=== PATIENT | male | born 1950 | race Caucasian/White ===

== ENCOUNTER → 2016-10-23 | Outpatient (CLI) | payer MEDICARE ==
[~2016-10-23] MED LIST: ASPI-496 PO; ATEN25TA PO; BENA5TAB2 PO; CHOL100018 PO; DAPA5TAB PO; LIRA0.6P SQ; MULT1TAB60 PO; PRAV20TA PO
[2016-10-23 09:17] LABS: ASPARTATE AMINO TRANSFERASE 194 U/L (15-37); BLOOD UREA NITROGEN 15 mg/dL (7-18)
== END | disposition home or self-care (01) ==
LOC: STAR 07:42
PROVIDERS: ATTEND Orthopaedic Surgery
DX: Z01.818 Encounter for other preprocedural examination (principal); M16.11 Unilateral primary osteoarthritis, right hip
CPT/HCPCS: 36415; 80053; 81003; 85025; 87081; 93005

== ENCOUNTER → 2017-10-27 | Outpatient (CLI) | payer MEDICARE ==
[~2017-10-27] MED LIST changes: +ACET-1600 PO; +CHOL100012 PO; -CHOL100018 PO; +DOCU-131 PO; +HYDR-3240 PO; +IBUP-1223 PO
== END | disposition home or self-care (01) ==
LOC: CVU 08:28
PROVIDERS: ATTEND Internal Medicine Cardiovascular Disease
DX: I10 Essential (primary) hypertension (principal); E11.9 Type 2 diabetes mellitus without complications; R94.31 Abnormal electrocardiogram [ECG] [EKG]; Z82.49 Family history of ischemic heart disease and other diseases of the circulatory system; R60.0 Localized edema
CPT/HCPCS: 93017; 93306; 93350

== ENCOUNTER 2019-06-23 13:40 | Inpatient (IN) | payer MEDICARE ==
[~2019-06-23] VITALS: Ht 182.9 cm; Wt 87.2 kg
[~2019-06-23 13:40] MED LIST changes: -BENA5TAB2 PO; +BENA5TAB3 PO
--- NOTE | 2019-06-23 13:53 | NUR ---
SORAIDA. REPORT RECEIVED FROM EMS. TRANSFFERED FROM [facility]. PT C/O GENERALIZED WEAKNESS/TARRY STOOL X A FEW DAYS. PT GOT 1 UNIT OF BLOOD TRANSFUSION D/T LOW H&H. PT'S AOX4. RESPS EVEN AND UNLABORED. BP/SPO2 MONITORS IN PLACE. CALL LIGHT WITHIN REACH. EDMD AT BEDSIDE TO EVALUATE AT THIS TIME.
[2019-06-23] MEDS ORDERED: PANTOPRAZOLE 80 MG in SODIUM CHLORIDE 0.9% 50 ML IVPB ONE (14:02)
[2019-06-23 14:30] LABS: ALANINE AMINOTRANSFERASE 87 U/L (12-78); ALBUMIN 2.3 g/dL (3.4-5.0); ANION GAP 12 mmol/L (5-15); CALCIUM 7.6 mg/dL (8.5-10.1); CHLORIDE 101 mmol/L (98-107); CREATININE 0.79 mg/dL (0.7-1.3)
[2019-06-23] MEDS ORDERED: SODIUM CHLORIDE FLUSH 10ML SYR IVF ONE ×2 (14:30→17:00)
[2019-06-23 14:33] LABS: ALKALINE PHOSPHATASE 195 U/L (45-117); BILIRUBIN,TOTAL 1.7 mg/dL (0.2-1.0); TOTAL PROTEIN 5.6 g/dL (6.4-8.2)
--- NOTE | 2019-06-23 14:38 | NUR ---
PROTONIX INFUSING AT THIS TIME. PT TOLERATED WELL.
[2019-06-23 14:53] LABS: INTERNATIONAL NORMALIZED RATIO 1.39 (0.93-1.1); PROTHROMBIN TIME 14.4 Seconds (9.6-11.5)
[2019-06-23] MEDS: PANTOPRAZOLE 80 MG in SODIUM CHLORIDE 0.9% 100 ML IV SCH (15:05)
--- NOTE | 2019-06-23 15:07 | NUR ---
Note carlineone in EDM - 06/23/19 at 1540 by YAMILKA END PROTONIX INFUSING AT THIS TIME. PT TOLERATED WELL. PT'S AOX4. RESPS EVEN AND UNLABORED.
--- NOTE | 2019-06-23 15:08 | NUR ---
2ND PROTONIX INFUSING AT THIS TIME. PT TOLERATED WELL. PT'S AOX4. RESPS EVEN AND UNLABORED.
[2019-06-23] MEDS ORDERED: CYAN-27 PO (15:12)
[2019-06-23 15:34] LABS: BASOPHILS # (AUTO) 0.03 x10^3/uL (0-0.1); BASOPHILS % (AUTO) 0 % (0-1); EOSINOPHILS # (AUTO) 0.04 x10^3/uL (0-0.4); EOSINOPHILS % (AUTO) 1 % (1-7); LYMPHOCYTES # (AUTO) 0.83 x10^3/uL (1-3.4); LYMPHOCYTES % (AUTO) 14 % (22-44); MD NO; MEAN CORPUSCULAR HEMOGLOBIN 26.5 pg (27.5-34.5); MEAN CORPUSCULAR VOLUME 85.5 fL (81-97); MEAN PLATELET VOLUME 6.9 fL (7.4-10.4); MONOCYTES % (AUTO) 12 % (2-9); NEUTROPHILS # (AUTO) 4.44 x10^3/uL (1.8-6.8); NEUTROPHILS % (AUTO) 74 % (42-75); PLATELET COUNT 151 x10^3/uL (130-400); RED BLOOD COUNT 2.78 x10^6/uL (4.38-5.82); RED CELL DISTRIBUTION WIDTH 19.6 % (9.4-14.8)
--- NOTE | 2019-06-23 16:21 | NUR ---
PT RESTING IN [facility]. PT'S AOX4. RESPS EVEN AND UNLABORED.
--- NOTE | 2019-06-23 16:56 | NUR ---
PT AMB TO BR WITH THIS RN AND PT'S . PT'S AOX4. RESPS EVEN AND UNLABORED.
--- NOTE | 2019-06-23 17:02 | NUR ---
PT REQUESTING FOOD/WATER AT THIS TIME. EDMD NOTIFIED AND EDMD STATES"JUST NPO STATUS NOW." PT NOTIFIED.
[2019-06-23] MEDS ORDERED: ONDANSETRON 2MG/ML, 2ML IVPush PRN (18:00)
[2019-06-23] MEDS: INSULIN LISPRO 100 UNITS/ML, PEN SQ-INSULIN SCH (18:00)
[2019-06-23] MEDS ORDERED: ACETAMINOPHEN 325 MG TABLET PO PRN (18:00)
[2019-06-23] MEDS ORDERED: ONDANSETRON ODT 4 MG PO PRN (18:00)
--- NOTE | 2019-06-23 18:21 | NUR ---
REPORT GIVEN TO KRISTA BAIG. ALL QUESTIONS ANSWERED.
[2019-06-23 18:56] VITALS: BP 128/73
[2019-06-23] MEDS: LACTATED RINGERS 1,000 ML IV SCH (20:54)
[2019-06-24] MEDS: PANTOPRAZOLE 80 MG in SODIUM CHLORIDE 0.9% 100 ML IV SCH (00:17)
[2019-06-24 00:48] VITALS: BP 120/75
[2019-06-24] MEDS: INSULIN LISPRO 100 UNITS/ML, PEN SQ-INSULIN SCH ×4 (05:46→18:00)
[2019-06-24] MEDS: LACTATED RINGERS 1,000 ML IV SCH ×2 (05:50→22:00)
[2019-06-24 07:35] VITALS: BP 116/69
[2019-06-24 07:51] LABS: ALANINE AMINOTRANSFERASE 79 U/L (12-78); ALBUMIN 2.1 g/dL (3.4-5.0); ANION GAP 8 mmol/L (5-15); CALCIUM 7.5 mg/dL (8.5-10.1); CHLORIDE 105 mmol/L (98-107); CREATININE 0.68 mg/dL (0.7-1.3)
[2019-06-24 07:53] LABS: MEAN CORPUSCULAR HEMOGLOBIN 26.8 pg (27.5-34.5); MEAN CORPUSCULAR HGB CONC 30.8 g/dL (33.2-36.2); MEAN CORPUSCULAR VOLUME 86.7 fL (81-97); MEAN PLATELET VOLUME 6.7 fL (7.4-10.4); PLATELET COUNT 141 x10^3/uL (130-400); RED BLOOD COUNT 2.65 x10^6/uL (4.38-5.82); RED CELL DISTRIBUTION WIDTH 18.8 % (9.4-14.8)
[2019-06-24 07:54] LABS: ALKALINE PHOSPHATASE 163 U/L (45-117); TOTAL PROTEIN 5.3 g/dL (6.4-8.2)
[2019-06-24 09:08] LABS: BASOPHILS # (AUTO) 0.02 x10^3/uL (0-0.1); BASOPHILS % (AUTO) 1 % (0-1); EOSINOPHILS # (AUTO) 0.08 x10^3/uL (0-0.4); EOSINOPHILS % (AUTO) 2 % (1-7); LYMPHOCYTES # (AUTO) 0.93 x10^3/uL (1-3.4); LYMPHOCYTES % (AUTO) 20 % (22-44); MD SCAN; MONOCYTES # (AUTO) 0.56 x10^3/uL (0.2-0.8); MONOCYTES % (AUTO) 12 % (2-9); NEUTROPHILS # (AUTO) 3.21 x10^3/uL (1.8-6.8); NEUTROPHILS % (AUTO) 67 % (42-75)
[2019-06-24] MEDS ORDERED: PANTOPRAZOLE 80 MG in SODIUM CHLORIDE 0.9% 100 ML IV SCH (10:00)
[2019-06-24 13:30] VITALS: BP 112/71
[2019-06-24] MEDS ORDERED: SUCCINYLCHOLINE 20 MG/ML, 10ML ONE (15:40)
[2019-06-24] MEDS ORDERED: PROPOFOL 10 MG/ML, 20ML ONE (15:40)
[2019-06-24] MEDS ORDERED: ONDANSETRON 2MG/ML, 2ML ONE (15:40)
[2019-06-24] MEDS ORDERED: PROMETHAZINE 25 MG/ML, 1ML IV PRN (16:00)
[2019-06-24] MEDS ORDERED: OXYcodone 5 MG/5 ML ORAL.SOL UDC PO PRN (16:00)
[2019-06-24] MEDS ORDERED: ONDANSETRON 2MG/ML, 2ML IVPush PRN (16:00)
[2019-06-24] MEDS ORDERED: FENTANYL PF 100 MCG/2ML IV PRN (16:00)
[2019-06-24] MEDS ORDERED: METOCLOPRAMIDE 5 MG/ML, 2ML IV PRN (16:00)
[2019-06-24] MEDS ORDERED: KETOROLAC 30 MG/1 ML IV PRN (16:00)
[2019-06-24] MEDS ORDERED: MEPERIDINE/PF 25MG/0.5ML IVPush PRN (16:00)
[2019-06-24] MEDS ORDERED: hydrALAzine 20 MG/ML, 1ML IV PRN (16:00)
[2019-06-24] MEDS ORDERED: LABETALOL 5MG/ML, 20ML IV PRN (16:00)
[2019-06-24] MEDS ORDERED: HYDROmorphone 1 MG/ML, 1ML INJ IV PRN (16:00)
[2019-06-24] MEDS ORDERED: ALBUTEROL SULFATE 2.5 MG/3 ML NPPB PRN (16:00)
[2019-06-24 16:52] VITALS: BP 126/70
[2019-06-24 19:09] VITALS: BP 124/71
[2019-06-25] VITALS (8 sets, daily range): BP systolic 100–130; BP diastolic 59–81
[2019-06-25] MEDS: INSULIN LISPRO 100 UNITS/ML, PEN SQ-INSULIN SCH ×5 (00:05→21:00)
[2019-06-25] MEDS: OMEPRAZOLE 20 MG CAPSULE.DR PO SCH ×2 (06:11→16:17)
[2019-06-25] MEDS: CHLORDIAZEPOXIDE 25 MG CAPSULE PO SCH ×2 (14:49→21:01)
[2019-06-26 03:50] VITALS: BP 108/74
[2019-06-26] MEDS: OMEPRAZOLE 20 MG CAPSULE.DR PO SCH (05:06)
[2019-06-26 05:51] LABS: ANION GAP 5 mmol/L (5-15); CALCIUM 7.1 mg/dL (8.5-10.1); CHLORIDE 103 mmol/L (98-107)
[2019-06-26 05:55] LABS: ALANINE AMINOTRANSFERASE 74 U/L (12-78); ALKALINE PHOSPHATASE 154 U/L (45-117); BILIRUBIN,TOTAL 2.1 mg/dL (0.2-1.0); CREATININE 0.68 mg/dL (0.7-1.3); TOTAL PROTEIN 5.1 g/dL (6.4-8.2)
[2019-06-26 06:45] VITALS: BP 117/74
[2019-06-26] MEDS: INSULIN LISPRO 100 UNITS/ML, PEN SQ-INSULIN SCH ×2 (07:00→11:00)
[2019-06-26 09:04] LABS: MEAN CORPUSCULAR HEMOGLOBIN 26.3 pg (27.5-34.5); MEAN CORPUSCULAR HGB CONC 30.6 g/dL (33.2-36.2); MEAN CORPUSCULAR VOLUME 86.1 fL (81-97); RED BLOOD COUNT 3.11 x10^6/uL (4.38-5.82); RED CELL DISTRIBUTION WIDTH 18.6 % (9.4-14.8)
[2019-06-26 09:08] LABS: BASOPHILS # (AUTO) 0.03 x10^3/uL (0-0.1); BASOPHILS % (AUTO) 0 % (0-1); EOSINOPHILS # (AUTO) 0.24 x10^3/uL (0-0.4); EOSINOPHILS % (AUTO) 3 % (1-7); LYMPHOCYTES # (AUTO) 1.19 x10^3/uL (1-3.4); LYMPHOCYTES % (AUTO) 15 % (22-44); MD MORPH REVIEW ONLY; MONOCYTES # (AUTO) 0.74 x10^3/uL (0.2-0.8); MONOCYTES % (AUTO) 10 % (2-9); NEUTROPHILS # (AUTO) 5.51 x10^3/uL (1.8-6.8); NEUTROPHILS % (AUTO) 71 % (42-75)
[2019-06-26 09:09] LABS: ANISOCYTOSIS 1+
[2019-06-26 09:10] LABS: HYPOCHROMIA 1+; POLYCHROMASIA 1+
[2019-06-26 09:14] LABS: SPHEROCYTES 1+
[2019-06-26 09:15] LABS: OVALOCYTES 1+
[2019-06-26 09:16] LABS: STOMATOCYTES 1+
[2019-06-26] MEDS: CHLORDIAZEPOXIDE 25 MG CAPSULE PO SCH (09:16)
[2019-06-26 09:29] LABS: MEAN PLATELET VOLUME 6.8 fL (7.4-10.4); PLATELET COUNT 138 x10^3/uL (130-400)
[2019-06-26 09:30] LABS: <PLATELET ESTIMATE> ADEQUATE; <PLT MORPHOLOGY> NORMAL PLT MORPH
[2019-06-26] MEDS ORDERED: BENA10TA6 PO (11:00)
[2019-06-26] MEDS ORDERED: OMEP-110 PO (11:00)
[2019-06-26] MEDS ORDERED: CHLO25CA9 PO (11:00)
== END 2019-06-26 12:12 | disposition home or self-care (01) | DRG 378 ==
LOC: ED 16:42 → EDIP 16:54 → ED 16:57 → 4WST 18:45 → DCLOUNGE 06-26 12:00
PROVIDERS: ADMIT Internal Medicine; ATTEND Family Medicine
PROC: 0DJ08ZZ Inspection of Upper Intestinal Tract, Via Natural or Artificial Opening Endoscopic (ICD-10-PCS; 2019-06-24)
PROC: 30233N1 Transfusion of Nonautologous Red Blood Cells into Peripheral Vein, Percutaneous Approach (ICD-10-PCS; principal; 2019-06-25)
DX: K25.4 Chronic or unspecified gastric ulcer with hemorrhage (principal); D62 Acute posthemorrhagic anemia; K76.6 Portal hypertension; F10.239 Alcohol dependence with withdrawal, unspecified; K70.31 Alcoholic cirrhosis of liver with ascites; E83.110 Hereditary hemochromatosis; E11.42 Type 2 diabetes mellitus with diabetic polyneuropathy; E78.00 Pure hypercholesterolemia, unspecified; E78.5 Hyperlipidemia, unspecified; I10 Essential (primary) hypertension; K31.89 Other diseases of stomach and duodenum; K80.20 Calculus of gallbladder without cholecystitis without obstruction; Z87.891 Personal history of nicotine dependence; Z87.11 Personal history of peptic ulcer disease; Z85.828 Personal history of other malignant neoplasm of skin
CPT/HCPCS: 36415; 80053; 82962; 83036; 85014; 85018; 85025; 85610; 85730; 86850; 86900; 86923; 93005; 96365; 99285; G0378; J2405; J2704; C9113; J0330; J7120; P9016

== ENCOUNTER → 2019-07-13 | Outpatient (CLI) | payer MEDICARE ==
[~2019-07-13] MED LIST changes: +ACID1TAB7 PO; +ALBUMIN HUMAN 25% 12.5 GM/50 ML ONE; +BENA10TA6 PO; +CARV3.1212 PO; +CHLO25CA9 PO; +CYAN-27 PO; +FERR-51 PO; +FURO40TA6 PO; +INSU100C5 SQ-INSULIN; +INSU100I11 SQ-INSULIN; +LIDOCAINE 1%, 10ML ONE; +OMEP-110 PO; +SPIR25TA PO
== END | disposition home or self-care (01) ==
LOC: RAD 14:59
PROVIDERS: ATTEND Internal Medicine
DX: R18.8 Other ascites (principal); K70.9 Alcoholic liver disease, unspecified
CPT/HCPCS: 49083; P9047

== ENCOUNTER 2019-08-07 11:49 | Emergency (ER) | payer MEDICARE ==
[~2019-08-07] VITALS: Ht 182.9 cm; Wt 93.0 kg
[~2019-08-07 11:49] MED LIST changes: -ALBUMIN HUMAN 25% 12.5 GM/50 ML ONE; +BENA10TA59 PO; -BENA10TA6 PO; -LIDOCAINE 1%, 10ML ONE
--- NOTE | 2019-08-07 12:12 | NUR ---
YADIRA POSEY BS FOR EXAM. PT AND SPOUSE PROVIDING INFORMATION. PER SPOUSE: PT HAS HAD SOB, PAIN ALL NIGHT. SENT TO ED PER DR FERGUSON" FOR PARACENTESIS, "AND THEN WE'RE GOING HOME". LIBRIUM X 1 TAB 0 LAST NOC UPPER GI SCHEDULED FOR THURSDAY.
[2019-08-07] MEDS ORDERED: METAMUCIL POWDER (12:29)
[2019-08-07] MEDS ORDERED: SPIR25TA5 PO (12:29)
--- NOTE | 2019-08-07 12:34 | NUR ---
DR ALTMAN BS FOR EXAM
[2019-08-07 13:52] VITALS: BP 96/56
--- NOTE | 2019-08-07 13:53 | NUR ---
RETURNED FROM PARACENTESIS PROCEDURE. PT REPORTS RELIEF OF SX.
== END 2019-08-07 14:41 | disposition home or self-care (01) ==
LOC: ED 13:39
DX: R18.8 Other ascites (principal); R00.0 Tachycardia, unspecified; R06.02 Shortness of breath; E11.9 Type 2 diabetes mellitus without complications
CPT/HCPCS: 49083; 99285

== ENCOUNTER 2019-08-30 10:30 | Outpatient (CLI) | payer MEDICARE ==
[~2019-08-30 10:30] MED LIST changes: +METAMUCIL POWDER; +SPIR25TA5 PO
[2019-08-30] MEDS ORDERED: LIDOCAINE 1%, 10ML ONE (11:18)
== END 2019-08-30 23:59 | disposition home or self-care (01) ==
LOC: RAD 10:30
PROVIDERS: ATTEND Internal Medicine
DX: K70.31 Alcoholic cirrhosis of liver with ascites (principal); K25.4 Chronic or unspecified gastric ulcer with hemorrhage; E78.5 Hyperlipidemia, unspecified; E83.110 Hereditary hemochromatosis; E11.9 Type 2 diabetes mellitus without complications; F10.20 Alcohol dependence, uncomplicated; Z79.4 Long term (current) use of insulin; Z79.899 Other long term (current) drug therapy; Z86.010 Personal history of colon polyps; Z87.891 Personal history of nicotine dependence; Z96.641 Presence of right artificial hip joint; Z98.890 Other specified postprocedural states; Z83.3 Family history of diabetes mellitus
CPT/HCPCS: 49083; 87070; 87205; 88112; 88305; 89051

== ENCOUNTER → 2019-09-14 | Outpatient (CLI) | payer MEDICARE ==
[~2019-09-14] MED LIST changes: +ALBUMIN HUMAN 25%, 25GM/100ML ONE; +LIDOCAINE 1%, 10ML ONE
== END | disposition home or self-care (01) ==
LOC: RAD 11:24
PROVIDERS: ATTEND Internal Medicine
DX: K70.31 Alcoholic cirrhosis of liver with ascites (principal)
CPT/HCPCS: 49083; P9047

== ENCOUNTER 2019-10-05 13:26 | Outpatient (CLI) | payer MEDICARE ==
[~2019-10-05 13:26] MED LIST changes: -LIDOCAINE 1%, 10ML ONE
[2019-10-05] MEDS ORDERED: LIDOCAINE 1%, 10ML ONE (14:17)
== END 2019-10-05 23:59 | disposition home or self-care (01) ==
LOC: RAD 13:26
PROVIDERS: ATTEND Internal Medicine
DX: K70.31 Alcoholic cirrhosis of liver with ascites (principal)
CPT/HCPCS: 49083; P9047

== ENCOUNTER → 2019-10-31 | Outpatient (CLI) | payer MEDICARE ==
[~2019-10-31] MED LIST changes: +LIDOCAINE 1%, 10ML ONE
== END | disposition home or self-care (01) ==
LOC: RAD 10:28
PROVIDERS: ATTEND Internal Medicine
DX: K70.31 Alcoholic cirrhosis of liver with ascites (principal)
CPT/HCPCS: 49083; P9047

== ENCOUNTER 2019-11-17 15:01 | Outpatient (CLI) | payer MEDICARE ==
[~2019-11-17 15:01] MED LIST changes: -ALBUMIN HUMAN 25%, 25GM/100ML ONE; -LIDOCAINE 1%, 10ML ONE
[2019-11-17] MEDS ORDERED: ALBUMIN HUMAN 25%, 25GM/100ML ONE (15:25)
== END 2019-11-17 23:59 | disposition home or self-care (01) ==
LOC: RAD 15:01
PROVIDERS: ATTEND Internal Medicine
DX: K70.31 Alcoholic cirrhosis of liver with ascites (principal)
CPT/HCPCS: 49083; P9047